=== PATIENT | female | born 1975 | race African-American/Black ===

== ENCOUNTER 2019-01-01 20:50 | Emergency (ER) | payer OTHER ==
[~2019-01-01] VITALS: Ht 165.1 cm; Wt 111.6 kg
--- OUTSIDE RECORDS SUMMARY | 2019-01-01 20:53 | XMS REPORT | Summary of Care ---
Author Author [facility] Organization [facility] Address Unknown Phone Unavailable Encounter DERRICK Guzmán(JERRY) [id number] Date(s): 03/28/17 - 03/29/17 [facility] [address] [place] [address]- [phone] Discharge Diagnosis: Anal fissure Discharge Diagnosis: Groin strain Discharge Disposition: Home or Self Care Attending Physician: Vita Simon DO Vital Signs Most recent to 1 2 oldest [Reference Range]: Height 165.1 cm (03/29/17 12:05 AM) Temperature Oral 97.9 DegF 98.1 DegF [96.4-99.1 DegF] (03/29/17 3:02 AM) (03/29/17 12:05 AM) Blood Pressure 145/80 mmHg 156/96 mmHg [90-140/60-90 mmHg] *HI* *HI* (03/29/17 3:02 AM) (03/29/17 12:05 AM) Respiratory Rate 16 BRMIN 18 BRMIN [14-20 BRMIN] (03/29/17 3:02 AM) (03/29/17 12:05 AM) Peripheral Pulse 82 bpm 86 bpm Rate [60-100 bpm] (03/29/17 3:02 AM) (03/29/17 12:05 AM) Weight 90.909 kg (03/29/17 12:05 AM) Body Mass Index 33.35 m2 (03/29/17 12:05 AM) Problem List Condition Effective Dates Status Health Status Informant Asthma(Confirmed) Resolved BP+ - Resolved Hypertension(Confirm ed) Hysterectomy(Confirm 03/12/14 Active ed) Allergies, Adverse Reactions, Alerts Substance Reaction Severity Status Food Strawberries Active NKDA Active Medications Colace 100 mg oral capsule 100 mg=1 cap, PO, BID, PRN Constipation, # 20 cap, 0 Refill(s) Start Date: 03/29/17 Status: Ordered Flexeril 10 mg oral tablet 10 mg=1 tab, PO, TID, PRN for spasm, X 10 day, # 30 tab, 0 Refill(s) Start Date: 03/29/17 Stop Date: 04/08/17 Status: Ordered tramadol 50 mg oral tablet 50 mg=1 tab, PO, Q6H, PRN Pain, not to exceed 400 mg/day, X 5 day, # 20 tab, 0 R efill(s) Start Date: 03/29/17 Stop Date: 04/03/17 Status: Ordered Results ELECTROLYTES Most recent to 1 oldest [Reference Range]: Sodium Lvl [135-145 142 mEq/L mEq/L] (03/29/17 1:07 AM) Potassium Lvl 3.7 mEq/L [3.5-5.1 mEq/L] (03/29/17 1:07 AM) Chloride Lvl [95-109 106 mEq/L mEq/L] (03/29/17 1:07 AM) CO2 [24-32 mEq/L] 30 mEq/L (03/29/17 1:07 AM) AGAP [10.0-20.0 9.7 mEq/L mEq/L] *LOW* (03/29/17 1:07 AM) CHEM PANEL Most recent to 1 oldest [Reference Range]: Creatinine Lvl 0.79 mg/dL [0.50-1.40 mg/dL] (03/29/17 1:07 AM) eGFR 106 mL/min/1.73m2 1 *NA* (03/29/17 1:07 AM) BUN [7-22 mg/dL] 13 mg/dL (03/29/17 1:07 AM) B/C Ratio [6-25] 16 (03/29/17 1:07 AM) Glucose Lvl [70-99 111 mg/dL mg/dL] *HI* (03/29/17 1:07 AM) Total Protein 7.2 g/dL [6.4-8.4 g/dL] (03/29/17 1:07 AM) Albumin Lvl [3.5-5.0 3.7 g/dL g/dL] (03/29/17 1:07 AM) Globulin [2.7-4.2 3.5 g/dL g/dL] (03/29/17 1:07 AM) A/G Ratio [0.7-1.6] 1.1 (03/29/17 1:07 AM) Calcium Lvl 8.6 mg/dL [8.5-10.5 mg/dL] (03/29/17 1:07 AM) ALT [0-65 unit/L] 19 unit/L (03/29/17 1:07 AM) AST [0-37 unit/L] 14 unit/L (03/29/17 1:07 AM) Alk Phos [39-136 87 unit/L unit/L] (03/29/17 1:07 AM) Bili Total [0.2-1.3 0.5 mg/dL mg/dL] (03/29/17 1:07 AM) 1Result Comment: The eGFR is calculated using the CKD-EPI formula. In most young, healthy individuals the eGFR will be >90 mL/min/1.73m2. The eGFR declines with age. An eGFR of 60-89 may be normal in some populations, particularly the elderly, for whom the CKD-EPI formula has not been extensively validated. Use of the eGFR is not recommended in the following populations: Individuals with unstable creatinine concentrations, including patients and those with serious co-morbid conditions. Patients with extremes in muscle mass or diet. The data above are obtained from the National Kidney Disease Education Program ( NKDEP) which additionally recommends that when the eGFR is used in patients with extremes of body mass index for purposes of drug dosing, the eGFR should be mul tiplied by the estimated BMI. ENDOCRINOLOGY Most recent to 1 oldest [Reference Range]: S Preg [Negative] Negative *NA* (03/29/17 1:07 AM) URINE AND STOOL Most recent to 1 oldest [Reference Range]: UA Turbidity [Clear] Clear (03/29/17 1:07 AM) UA Color [Yellow] Yellow *NA* (03/29/17 1:07 AM) UA pH [5.0-8.0] 6.0 (03/29/17 1:07 AM) UA Spec Grav 1.021 [<=1.030] (03/29/17 1:07 AM) UA Glucose [Negative Negative mg/dL mg/dL] *NA* (03/29/17 1:07 AM) UA Blood [Negative] Negative (03/29/17 1:07 AM) UA Ketones [Negative Negative mg/dL mg/dL] *NA* (03/29/17 1:07 AM) UA Protein [Negative Negative mg/dL mg/dL] (03/29/17 1:07 AM) UA Urobilinogen <=1.0 mg/dL [0.1-1.0 mg/dL] *NA* (03/29/17 1:07 AM) UA Bili [Negative] Negative *NA* (03/29/17 1:07 AM) UA Leuk Est Negative [Negative] (03/29/17 1:07 AM) UA Nitrite Negative [Negative] (03/29/17 1:07 AM) UA WBC [0-5 /HPF] 1 /HPF (03/29/17 1:07 AM) UA RBC [0-2 /HPF] 3 /HPF *HI* (03/29/17 1:07 AM) UA Sq Epi [Few /LPF] Few /LPF *NA* (03/29/17 1:07 AM) UA Mucus [None Seen Few /LPF /LPF] *NA* (03/29/17 1:07 AM) Occult Bld Stl Negative [Negative] (03/29/17 2:23 AM) HEMATOLOGY Most recent to 1 oldest [Reference Range]: WBC [3.7-10.4 K/CMM] 12.0 K/CMM *HI* (03/29/17 1:07 AM) RBC [4.20-5.40 4.30 M/CMM M/CMM] (03/29/17 1:07 AM) Hgb [12.0-16.0 g/dL] 12.8 g/dL (03/29/17 1:07 AM) Hct [36.0-48.0 %] 37.4 % (03/29/17 1:07 AM) MCV [80.0-98.0 fL] 87.0 fL (03/29/17 1:07 AM) MCH [27.0-31.0 pg] 29.7 pg (03/29/17 1:07 AM) MCHC [32.0-36.0 34.1 g/dL g/dL] (03/29/17 1:07 AM) RDW [11.5-14.5 %] 12.4 % (03/29/17 1:07 AM) Platelet [133-450 285 K/CMM K/CMM] (03/29/17 1:07 AM) MPV [7.4-10.4 fL] 9.6 fL (03/29/17 1:07 AM) Segs [45.0-75.0 %] 65.8 % (03/29/17 1:07 AM) Lymphocytes 26.2 % [20.0-40.0 %] (03/29/17 1:07 AM) Monocytes [2.0-12.0 6.1 % %] (03/29/17 1:07 AM) Eosinophils [0.0-4.0 1.5 % %] (03/29/17 1:07 AM) Basophils [0.0-1.0 0.4 % %] (03/29/17 1:07 AM) Segs-Bands # 7.9 K/CMM [1.5-8.1 K/CMM] (03/29/17 1:07 AM) Lymphocytes # 3.1 K/CMM [1.0-5.5 K/CMM] (03/29/17 1:07 AM) Monocytes # [0.0-0.8 0.7 K/CMM K/CMM] (03/29/17 1:07 AM) Eosinophils # 0.2 K/CMM [0.0-0.5 K/CMM] (03/29/17 1:07 AM) Immunizations Given and Recorded Vaccine Date Status Refusal Reason pneumococcal 23-valent vaccine 04/20/14 Given Procedures Procedure Date Related Diagnosis Body Site Gallbladder stone removal Hysterectomy Social History Social History Type Response Alcohol Never, Previous treatment: None. Smoking Status Never smoker; Previous treatment: None; Ready to change: No; Concerns about tobacco use in household: No; Exposure to Tobacco Smoke None; Cigarette Smoking Last 365 Days No; Reg Smoking Cessation Counseling Yes Assessment and Plan No data available for this section
--- OUTSIDE RECORDS SUMMARY | 2019-01-01 20:53 | XMS REPORT | Clinical Summary ---
Author Author [facility] Organization [facility] Address Unknown Phone Unavailable Care Team Providers Care Medical Imaging Specialist Name Role Phone Sharpless PCP Allergies Comments Active Allergy Reactions Severity Noted Date Berger 05/17/2017 Medications End Date Status Medication Sig Dispensed Refills Start Date Active amLODIPine (NORVASC) 5 MG Take 5 mg by 0 tablet mouth daily. 05/17/2018 naproxen (NAPROSYN) 500 Take 1 tablet 30 tablet 0 201 MG tablet (500 mg 7 total) by mouth 2 (two) times daily with breakfast and dinner. Active Problems Not on file Encounters Care Team Description Date Type Specialty Anders Heart MD Acute bilateral low back pain without sciatica (Primary Dx); Strain of lumbar region, initial encounter; Essential hypertension; Obesity without serious comorbidity, unspecified classification, unspecified obesity type 11/08/2018 Emergency Emergency Medicine 11/08/2018 Travel after 12/31/2017 Social History Date Tobacco Use Types Packs/Day Years Used Never Smoker Smokeless Tobacco: Never Used Alcohol Use Drinks/Week oz/Week Comments No Sex Assigned at Date Recorded Not on file Industry Job Start Date Occupation Not on file Not on file Not on file Travel End Travel History Travel Start No recent travel history available. Last Filed Vital Signs Time Taken Vital Sign Reading 11/08/2018 6:45 PM BUSINESS MANAGEMENT PROFESSOR Blood Pressure 141/82 11/08/2018 6:45 PM BUSINESS MANAGEMENT PROFESSOR Pulse 82 11/08/2018 6:45 PM BUSINESS MANAGEMENT PROFESSOR Temperature 36.7 C (98 F) 11/08/2018 6:45 PM BUSINESS MANAGEMENT PROFESSOR Respiratory Rate 18 11/08/2018 6:45 PM BUSINESS MANAGEMENT PROFESSOR Oxygen Saturation 99% - Inhaled Oxygen - Concentration 11/08/2018 2:52 PM BUSINESS MANAGEMENT PROFESSOR Weight 108.9 kg (240 lb) 11/08/2018 2:52 PM BUSINESS MANAGEMENT PROFESSOR Height 165.1 cm (5' 5") 11/08/2018 2:52 PM BUSINESS MANAGEMENT PROFESSOR Body Mass Index 39.94 Plan of Treatment Not on file Procedures Comments Procedure Name Priority Date/Time Associated Diagnosis XR SPINE LUMBAR COMPLETE STAT 11/08/2018 MIN 4 VIEWS 5:39 PM BUSINESS MANAGEMENT PROFESSOR SCREEN, URINE STAT 11/08/2018 3:02 PM BUSINESS MANAGEMENT PROFESSOR URINALYSIS W/ REFLEX STAT 11/08/2018 URINE CULTURE 3:02 PM BUSINESS MANAGEMENT PROFESSOR after 12/31/2017 Results * XR spine lumbar complete 4 views min (11/08/2018 5:39 PM BUSINESS MANAGEMENT PROFESSOR) Narrative Performed At FINAL REPORT RIS Lumbar spine, five images HISTORY: Back pain COMPARISON: None IMPRESSION: 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 No evidence for fracture. Moderate facet degenerative changes in the lower lumbar spine. Degenerative anterolisthesis of L4 on L5. 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 No evidence for fracture. Moderate facet degenerative changes in the lower lumbar spine. Degenerative anterolisthesis of L4 on L5. Signed: Duran Cai MD Report Verified Date/Time: 11/08/2018 17:52:50 Reading Location: [address] Radiology Reading Room Performing Organization Address City/State/Zipcode Phone Number RIS * Urinalysis w/Microscopic + Reflex to Culture (11/08/2018 3:02 PM BUSINESS MANAGEMENT PROFESSOR) [facility], UA Yellow [facility] Clarity, UA Clear [facility] Specific [place], UA 1.010 1.001 - 1.035 [facility] pH, UA 7.0 5.0 - 8.0 [facility] Protein, UA Negative Negative [facility] Glucose, UA Negative Negative [facility] Ketones, UA Negative Negative [facility] Bilirubin, UA Negative Negative [facility] Blood, UA Negative Negative [facility] Nitrite, UA Negative Negative [facility] Leukocytes, UA Negative Negative [facility] Urobilinogen, UA 0.2 0.2 - 1.0 mg/dL [facility] RBC, UA <1 /HPF [facility] WBC, UA 1 /HPF [facility] Squam Epithel, UA 3 /HPF [facility] Specimen Source [facility] Specimen Urine - Urine, Clean Catch Performing Organization Address City[facility] Phone Number [facility] [address] [place] [address] [facility] * screen, urine (11/08/2018 3:02 PM BUSINESS MANAGEMENT PROFESSOR) Preg Test, Ur Negative [facility] Specimen Urine - Urine, Clean Catch Performing Organization Address City/[facility] Phone Number [facility] [address] [place] [address] [facility] after 12/31/2017 Insurance Payer Benefit Subscriber ID Type Phone Address Plan / Group [employer] - MGD CARE CIGNA xxxxxxxxxxx HMO/POS HMO/POS/OP EN ACCESS ([place]) [place] [address]
--- OUTSIDE RECORDS SUMMARY | 2019-01-01 20:53 | XMS REPORT | Summary of Care ---
Author Author [facility] Organization [facility] Address Unknown Phone Unavailable Encounter HQ Ramirez(JERRY) [id number] Date(s): 11/08/17 - 11/09/17 [facility] [address] [place] [address]- Discharge Diagnosis: Acute bronchospasm Discharge Disposition: Home or Self Care Attending Physician: Magalis Garza DO Vital Signs 1 2 3 Most recent to oldest [Reference Range]: 165.1 cm (11/08/17 10:12 PM) Height 97.8 DegF (11/09/17 2:48 AM) 97.9 DegF (11/09/17 1:57 AM) 99.0 DegF (11/08/17 10:12 PM) Temperature Oral [96.4-99.1 DegF] 124/74 mmHg (11/09/17 2:48 AM) 117/68 mmHg (11/09/17 1:57 AM) 156/95 mmHg *HI* (11/08/17 10:12 PM) Blood Pressure [90-140/60-90 mmHg] 14 BRMIN (11/09/17 2:48 AM) 14 BRMIN (11/09/17 1:57 AM) 20 BRMIN (11/08/17 10:56 PM) Respiratory Rate [14-20 BRMIN] 84 bpm (11/09/17 2:48 AM) 92 bpm (11/08/17 10:12 PM) Peripheral Pulse Rate [60-100 bpm] 100 kg (11/08/17 10:12 PM) Weight 36.69 m2 (11/08/17 10:12 PM) Body Mass Index Problem List Condition Effective Dates Status Health Status Informant Asthma(Confirmed) Resolved BP+ - Resolved Hypertension(Confirm ed) Hysterectomy(Confirm 03/12/14 Active ed) Allergies, Adverse Reactions, Alerts Substance Reaction Severity Status Food Strawberries Active NKDA Active Medications DuoNeb inhalation solution 3 ml, Route: NEB, Drug Form: SOLN, Dosing Weight 90.909, kg, PRN, PRN Respirator y Protocol, Start date: 11/08/17 22:11:00 MEDICAL LOGISTICS SPECIALIST, Duration: 30 day, Stop date: 11/26 02/10 22:10:00 MEDICAL LOGISTICS SPECIALIST Notes: (Same as: Duoneb) Start Date: 11/08/17 Stop Date: 11/09/17 Status: Discontinued predniSONE 50 mg oral tablet 50 mg=1 tab, PO, Daily, X 5 day, # 5 tab, 0 Refill(s) Start Date: 11/09/17 Stop Date: 11/14/17 Status: Ordered Saline Flush 0.9% 10 mL, Route: IVP, Drug Form: INJ, Dosing Weight 90.909, kg, PRN, PRN Line Flush , Start date: 11/08/17 22:11:00 MEDICAL LOGISTICS SPECIALIST, Duration: 30 day, Stop date: 12/08/17 22:10 :00 MEDICAL LOGISTICS SPECIALIST Notes: (Same as: BD Posiflush) Start Date: 11/08/17 Stop Date: 11/09/17 Status: Discontinued Tessalon 200 mg oral capsule 200 mg=1 cap, PO, TID, X 10 day, # 30 cap, 0 Refill(s) Start Date: 11/09/17 Stop Date: 11/19/17 Status: Ordered Results ELECTROLYTES Most recent to 1 oldest [Reference Range]: Sodium Lvl [135-145 140 mEq/L mEq/L] (11/08/17 10:37 PM) Potassium Lvl 3.8 mEq/L [3.5-5.1 mEq/L] (11/08/17 10:37 PM) Chloride Lvl [95-109 103 mEq/L mEq/L] (11/08/17 10:37 PM) CO2 [24-32 mEq/L] 29 mEq/L (11/08/17 10:37 PM) AGAP [10.0-20.0 11.8 mEq/L mEq/L] (11/08/17 10:37 PM) CHEM PANEL Most recent to 1 oldest [Reference Range]: Creatinine Lvl 0.87 mg/dL [0.50-1.40 mg/dL] (11/08/17 10:37 PM) eGFR 94 mL/min/1.73m2 1 *NA* (11/08/17 10:37 PM) BUN [7-22 mg/dL] 13 mg/dL (11/08/17 10:37 PM) B/C Ratio [6-25] 15 (11/08/17 10:37 PM) Glucose Lvl [70-99 90 mg/dL mg/dL] (11/08/17 10:37 PM) Total Protein 7.3 g/dL [6.4-8.4 g/dL] (11/08/17 10:37 PM) Albumin Lvl [3.5-5.0 3.6 g/dL g/dL] (11/08/17 10:37 PM) Globulin [2.7-4.2 3.7 g/dL g/dL] (11/08/17 10:37 PM) A/G Ratio [0.7-1.6] 1.0 (11/08/17 10:37 PM) Calcium Lvl 8.6 mg/dL [8.5-10.5 mg/dL] (11/08/17 10:37 PM) ALT [0-65 unit/L] 32 unit/L (11/08/17 10:37 PM) AST [0-37 unit/L] 21 unit/L (11/08/17 10:37 PM) Alk Phos [39-136 90 unit/L unit/L] (11/08/17 10:37 PM) Bili Total [0.2-1.3 0.4 mg/dL mg/dL] (11/08/17 10:37 PM) 1Result Comment: The eGFR is calculated using [...] be mul tiplied by the estimated BMI. CARDIAC ENZYMES Most recent to 1 oldest [Reference Range]: Total CK [12-191 249 unit/L unit/L] *HI* (11/08/17 10:37 PM) CK MB [0.5-3.6 2.8 ng/mL ng/mL] (11/08/17 10:37 PM) CK MB Index 1.1 [0.0-2.5] (11/08/17 10:37 PM) Troponin-I <0.02 ng/mL [0.00-0.40 ng/mL] (11/08/17 10:37 PM) URINE CHEM Most recent to 1 oldest [Reference Range]: U Preg [Negative] Negative (11/08/17 10:52 PM) URINE AND STOOL Most recent to 1 oldest [Reference Range]: UA Turbidity [Clear] Clear (11/08/17 10:52 PM) UA Color [Yellow] Yellow *NA* (11/08/17 10:52 PM) UA pH [5.0-8.0] 6.0 (11/08/17 10:52 PM) UA Spec Grav 1.024 [<=1.030] (11/08/17 10:52 PM) UA Glucose [Negative Negative mg/dL mg/dL] *NA* (11/08/17 10:52 PM) UA Blood [Negative] Negative (11/08/17 10:52 PM) UA Ketones [Negative Negative mg/dL mg/dL] *NA* (11/08/17 10:52 PM) UA Protein [Negative Negative mg/dL mg/dL] (11/08/17 10:52 PM) UA Urobilinogen <=1.0 mg/dL [0.1-1.0 mg/dL] *NA* (11/08/17 10:52 PM) UA Bili [Negative] Negative *NA* (11/08/17 10:52 PM) UA Leuk Est Negative [Negative] (11/08/17 10:52 PM) UA Nitrite Negative [Negative] (11/08/17 10:52 PM) UA WBC [0-5 /HPF] 1 /HPF (11/08/17 10:52 PM) UA RBC [0-2 /HPF] 2 /HPF (11/08/17 10:52 PM) UA Sq Epi [Few /LPF] Few /LPF *NA* (11/08/17 10:52 PM) UA Mucus [None Seen Few /LPF /LPF] *NA* (11/08/17 10:52 PM) HEMATOLOGY Most recent to 1 oldest [Reference Range]: WBC [3.7-10.4 K/CMM] 9.1 K/CMM (11/08/17 10:37 PM) RBC [4.20-5.40 4.22 M/CMM M/CMM] (11/08/17 10:37 PM) Hgb [12.0-16.0 g/dL] 12.4 g/dL (11/08/17 10:37 PM) Hct [36.0-48.0 %] 37.1 % (11/08/17 10:37 PM) MCV [80.0-98.0 fL] 87.9 fL (11/08/17 10:37 PM) MCH [27.0-31.0 pg] 29.3 pg (11/08/17 10:37 PM) MCHC [32.0-36.0 33.4 g/dL g/dL] (11/08/17 10:37 PM) RDW [11.5-14.5 %] 13.1 % (11/08/17 10:37 PM) Platelet [133-450 270 K/CMM K/CMM] (11/08/17 10:37 PM) MPV [7.4-10.4 fL] 9.8 fL (11/08/17 10:37 PM) Segs [45.0-75.0 %] 61.4 % (11/08/17 10:37 PM) Lymphocytes 27.4 % [20.0-40.0 %] (11/08/17 10:37 PM) Monocytes [2.0-12.0 8.2 % %] (11/08/17 10:37 PM) Eosinophils [0.0-4.0 2.4 % %] (11/08/17 10:37 PM) Basophils [0.0-1.0 0.6 % %] (11/08/17 10:37 PM) Segs-Bands # 5.6 K/CMM [1.5-8.1 K/CMM] (11/08/17 10:37 PM) Lymphocytes # 2.5 K/CMM [1.0-5.5 K/CMM] (11/08/17 10:37 PM) Monocytes # [0.0-0.8 0.7 K/CMM K/CMM] (11/08/17 10:37 PM) Eosinophils # 0.2 K/CMM [0.0-0.5 K/CMM] (11/08/17 10:37 PM) Basophils # [0.0-0.2 0.1 K/CMM K/CMM] (11/08/17 10:37 PM) Immunizations Given and Recorded Vaccine Date Status [...]
--- OUTSIDE RECORDS SUMMARY | 2019-01-01 20:53 | XMS REPORT | Summary of Care ---
Author Author [facility] Organization [facility] Address Unknown Phone Unavailable Encounter DERRICK Guzmán(JERRY) [id number] Date(s): 06/21/16 - 06/21/16 [facility] [address] [place] [address]- Discharge Diagnosis: Irritation of right eye Discharge Disposition: Home or Self Care Attending Physician: Malcolm Cotton MD PHD Vital Signs Most recent to 1 oldest [Reference Range]: Height 165.1 cm (06/21/16 12:11 PM) Temperature Oral 98.3 DegF [96.4-99.1 DegF] (06/21/16 12:11 PM) Blood Pressure 148/87 mmHg [90-140/60-90 mmHg] *HI* (06/21/16 12:11 PM) Respiratory Rate 20 BRMIN [14-20 BRMIN] (06/21/16 12:11 PM) Peripheral Pulse 81 bpm Rate [60-100 bpm] (06/21/16 12:11 PM) Weight 95.455 kg (06/21/16 12:11 PM) Body Mass Index 35.02 m2 (06/21/16 12:11 PM) Problem List Condition Effective Dates Status Health Status Informant Asthma(Confirmed) Resolved BP+ - Resolved Hypertension(Confirm ed) Hysterectomy(Confirm 03/12/14 Active ed) Allergies, Adverse Reactions, Alerts Substance Reaction Severity Status Food Strawberries Active NKDA Active Medications No data available for this section Results No data available for this section Immunizations Given and Recorded Vaccine Date Status Refusal Reason pneumococcal 23-valent vaccine 04/20/14 Given Procedures Procedure Date Related Diagnosis Body Site Gallbladder stone removal Hysterectomy Social History Social History Type Response Alcohol Never, Previous treatment: None. Smoking Status Never smoker; Ready to change: No; Concerns about tobacco use in household: No; Exposure to Tobacco Smoke None; Cigarette Smoking Last 365 Days No; Reg Smoking Cessation Counseling Yes Assessment and Plan No data available for this section
--- OUTSIDE RECORDS SUMMARY | 2019-01-01 20:53 | XMS REPORT ---
Author Author [facility] Address Unknown Phone Unavailable Care Team Providers Care Welfare Manager Name Role Phone Unavailable Unavailable Problems This patient has no known problems. Allergies, Adverse Reactions, Alerts This patient has no known allergies or adverse reactions. Medications This patient has no known medications. 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 No evidence for fracture. Moderate facet degenerative changes in the lower lumbar spine. Degenerative anterolisthesis of L4 on L5. Signed: Duran Cai MDReport Verified Date/Time: 11/08/2018 17:52:50 Reading Location: [address] Radiology Reading Room ALYSIS W/ REFLEX URINE CULTURE 2018-11-08 15:33:00 COLOR (BEAKER) (test mkan=902) Yellow CLARITY (BEAKER) (test qdge=804) Clear SPECIFIC GRAVITY UA (BEAKER) (test reec=523) 1.010 1.001-1.035 PH UA (BEAKER) (test fkpx=970) 7.0 5.0-8.0 PROTEIN UA (BEAKER) (test ewjy=038) Negative Negative GLUCOSE UA (BEAKER) (test pktu=199) Negative Negative KETONES UA (BEAKER) (test kngg=089) Negative Negative BILIRUBIN UA (BEAKER) (test dqmr=685) Negative Negative BLOOD UA (BEAKER) (test itdq=554) Negative Negative NITRITE UA (BEAKER) (test jeqo=780) Negative Negative LEUKOCYTE ESTERASE UA (BEAKER) (test lthi=246) Negative Negative UROBILINOGEN UA (BEAKER) (test eypj=864) 0.2 mg/dL 0.2-1.0 RBC UA (BEAKER) (test lpue=008) < /HPF WBC UA (BEAKER) (test nifd=205) 1 /HPF SQUAMOUS EPITHELIAL (BEAKER) (test pofi=043) 3 /HPF SOURCE(BEAKER) (test hnmk=9498) SCREEN, [id number] 15:30:00* Test Item Value Reference Range Comments TEST URINE (BEAKER) (test rpif=692) Negative RAPID STREP A [id number] 15:24:00* Test Item Value Reference Range Comments STREP A ANTIGEN (BEAKER) (test klsd=209) Negative Negative
--- OUTSIDE RECORDS SUMMARY | 2019-01-01 20:53 | XMS REPORT | Continuity of Care Document ---
Author Author [facility] Interface Address Unknown Phone Unavailable Problems Problem Status Onset Date Classification Date Reported Comments Source FACIAL PAIN Active 08/22/2018 [facility] NECK/ SHOULDER PAIN Active 04/02/2018 [facility] Discharge Diagnosis: Acute bronchospasm 11/09/2017 11/12/2017 [facility] CHEST PAIN Active 11/08/2017 [facility] Discharge Diagnosis: Anal fissure 03/29/2017 04/01/2017 [facility] Discharge Diagnosis: Groin strain 03/29/2017 04/01/2017 [facility] BLOOD IN STOOL Active 03/28/2017 [facility] Discharge Diagnosis: Acute asthma exacerbation 01/27/2017 01/30/2017 [facility] Discharge Diagnosis: Irritation of right eye 06/21/2016 06/24/2016 [facility] EYE IRRITATION Active 06/21/2016 [facility] Hysterectomy Active 03/12/2014 Problem 04/06/2018 [facility] Asthma Resolved Problem 04/06/2018 [facility] BP+ - Hypertension Resolved Problem 04/06/2018 [facility] Medications Medication Details Route Status Patient Instructions Ordering Provider Order Date Source benzonatate 200 MG Oral Capsule [Tessalon] 200 mg=1 cap, PO, TID, X 10 day, # 30 cap, 0 Refill(s) Active 11/09/2017 [facility] Prednisone 50 MG Oral Tablet 50 mg=1 tab, PO, Daily, X 5 day, # 5 tab, 0 Refill(s) Active 11/09/2017 [facility] Albuterol 0.833 MG/ML / Ipratropium [place] 0.167 MG/ML Inhalant Solution [DuoNeb] 3 ml, Route: NEB, Drug Form: SOLN, Dosing Weight 90.909, kg, PRN, PRN Respiratory Protocol, Start date: 11/08/17 22:11:00 EXECUTIVE DIRECTOR OF NURSING, Duration: 30 day, Stop date: 12/08/17 22:10:00 CSTNotes: (Same as: Duoneb) No Longer Active 11/09/2017 [facility] Saline Flush 0.9% 10 mL, Route: IVP, Drug Form: INJ, Dosing Weight 90.909, kg, PRN, PRN Line Flush, Start date: 11/08/17 22:11:00 EXECUTIVE DIRECTOR OF NURSING, Duration: 30 day, Stop date: 12/08/17 22:10:00 CSTNotes: (Same as: BD Posiflush) No Longer Active 11/09/2017 [facility] tramadol hydrochloride 50 MG Oral Tablet 50 mg=1 tab, PO, Q6H, PRN Pain, not to exceed 400 mg/day, X 5 day, # 20 tab, 0 Refill(s) Active 03/29/2017 [facility] Cyclobenzaprine hydrochloride 10 MG Oral Tablet [Flexeril] 10 mg=1 tab, PO, TID, PRN for spasm, X 10 day, # 30 tab, 0 Refill(s) Active 03/29/2017 [facility] Docusate Sodium 100 MG Oral Capsule [Colace] 100 mg=1 cap, PO, BID, PRN Constipation, # 20 cap, 0 Refill(s) Active 03/29/2017 [facility] Azithromycin 5 Day Dose Pack 250 mg oral tablet See Instructions, Take 2 tablets by mouth the first day then 1 tablet by mouth days 2-5., X 5 day, # 6 tab, 0 Refill(s) Active 01/27/2017 [facility] 200 ACTUAT Albuterol 0.09 MG/ACTUAT Metered Dose Inhaler 2 puff, INHALATION, QID, PRN Wheezing, # 17 gm, 0 Refill(s) Active 01/27/2017 [facility] predniSONE 50 mg oral tablet 50 mg=1 tab, PO, Daily, X 5 day, # 5 tab, 0 Refill(s) Active 01/27/2017 [facility] Albuterol 0.833 MG/ML / Ipratropium [place] 0.167 MG/ML Inhalant Solution 3 mL, Route: NEB, Drug Form: SOLN, Dosing Weight 95.455, kg, ONCE, STAT, Start date: 01/27/17 1:34:00 EXECUTIVE DIRECTOR OF NURSING, Stop date: 01/27/17 1:34:00 CSTNotes: (Same as: Duoneb) Inactive 01/27/2017 [facility] Albuterol 0.83 MG/ML Inhalant Solution 2.49 mg, 3 mL, Route: NEB, Drug form: SOLN, ONCE, Dosing Weight 95.455, kg, Priority: STAT, Start date: 01/27/17 1:34:00 EXECUTIVE DIRECTOR OF NURSING, Stop date: 01/27/17 1:34:00 CSTNotes: SEE RT DOCUMENTATION (Same as: Proventil) Inactive 01/27/2017 [facility] Prednisone 60 mg, Route: PO, Drug form: TAB, ONCE, Dosing Weight 95.455, kg, Priority: STAT, Start date: 01/27/17 1:34:00 EXECUTIVE DIRECTOR OF NURSING, Stop date: 01/27/17 1:34:00 EXECUTIVE DIRECTOR OF NURSING Inactive 01/27/2017 [facility] Saline Flush 0.9% 10 mL, Route: IVP, Drug Form: INJ, Dosing Weight 95.455, kg, PRN, PRN Line Flush, Start date: 01/27/17 1:34:00 EXECUTIVE DIRECTOR OF NURSING, Duration: 30 day, Stop date: 02/26/17 2:33:00 CDTNotes: (Same as: BD Posiflush) Inactive 01/27/2017 [facility] Allergies, Adverse Reactions, Alerts Substance Category Reaction Severity Reaction type Status Date Reported Comments Source Food Strawberries Assertion Propensity to adverse reactions to food Active [facility] Immunizations Immunization Date Given Site Status Last Updated Comments Source pneumococcal 23-valent vaccine 04/20/2014 Left deltoid completed Fernandez [facility] Results Order Name Results Value Reference Range Date Interpretation Comments Source Nasal bones DX Nasal bones DX Nasal bones, 3 views HISTORY: Nasal pain. COMPARISON: None. FINDINGS: Frontal and bilateral radiographs demonstrate no definite evidence of an acute fracture. The paranasal sinuses appear to be well pneumatized. IMPRESSION: No acute finding. SL: YURIY 08/22/2018 - - Read by: Andrew Killian MD Dictated Date/time: 08/22/18 20:52 Electronically Signed by: Andrew Killian MD 08/22/18 20:57 FINAL REPORT [facility] URINE AND STOOL UA Sq Epi Few /LPF Few /LPF 11/09/2017 [facility] URINE AND STOOL UA RBC 2 /HPF 0 - 2 11/09/2017 [facility] URINE AND STOOL UA WBC 1 /HPF 0 - 5 11/09/2017 [facility] URINE AND STOOL UA Urobilinogen <=1.0 mg/dL 0.1 - 1.0 11/09/2017 [facility] URINE AND STOOL UA Mucus Few /LPF None Seen /LPF 11/09/2017 [facility] URINE AND STOOL UA Color Yellow *NA* (11/08/17 10:52 PM) Yellow 11/09/2017 [facility] URINE AND STOOL UA Protein Negative mg/dL Negative mg/dL 11/09/2017 [facility] URINE AND STOOL UA pH 6.0 5.0 - 8.0 11/09/2017 [facility] URINE AND STOOL UA Spec Grav 1.024 <=1.030 11/09/2017 [facility] URINE AND STOOL UA Turbidity Clear (11/08/17 10:52 PM) Clear 11/09/2017 [facility] URINE AND STOOL UA Glucose Negative mg/dL Negative mg/dL 11/09/2017 [facility] URINE AND STOOL UA Ketones Negative mg/dL Negative mg/dL 11/09/2017 [facility] URINE AND STOOL UA Leuk Est Negative (11/08/17 10:52 PM) Negative 11/09/2017 [facility] URINE AND STOOL UA Nitrite Negative (11/08/17 10:52 PM) Negative 11/09/2017 [facility] URINE AND STOOL UA Blood Negative (11/08/17 10:52 PM) Negative 11/09/2017 [facility] URINE AND STOOL UA Bili Negative *NA* (11/08/17 10:52 PM) Negative 11/09/2017 [facility] URINE CHEM U Preg Negative (11/08/17 10:52 PM) Negative 11/09/2017 [facility] CARDIAC ENZYMES Troponin-I null 0.00 - 0.40 11/09/2017 [facility] CARDIAC ENZYMES Total CK 249 unit/L 12 - 191 11/09/2017 [facility] CARDIAC ENZYMES CK MB 2.8 ng/mL 0.5 - 3.6 11/09/2017 [facility] CARDIAC ENZYMES CK MB Index 1.1 0.0 - 2.5 11/09/2017 [facility] CHEM PANEL eGFR 94 mL/min/1.73m2 11/09/2017 Result Comment: The eGFR is calculated using the [...] from the National Kidney Disease Education Program (NKDEP) which additionally recommends that when the eGFR is used in patients with extremes of body mass index for purposes of drug dosing, the eGFR should be multiplied by the estimated BMI. [facility] CHEM PANEL Creatinine Lvl 0.87 mg/dL 0.50 - 1.40 11/09/2017 [facility] CHEM PANEL Sodium Lvl 140 meq/L 135 - 145 11/09/2017 [facility] CHEM PANEL B/C Ratio 15 6 - 25 11/09/2017 [facility] CHEM PANEL A/G Ratio 1.0 0.7 - 1.6 11/09/2017 [facility] CHEM PANEL Globulin 3.7 g/dL 2.7 - 4.2 11/09/2017 [facility] CHEM PANEL Alk Phos 90 unit/L 39 - 136 11/09/2017 [facility] CHEM PANEL Bili Total 0.4 mg/dL 0.2 - 1.3 11/09/2017 [facility] CHEM PANEL ALT 32 unit/L 0 - 65 11/09/2017 [facility] CHEM PANEL AST 21 unit/L 0 - 37 11/09/2017 [facility] CHEM PANEL Calcium Lvl 8.6 mg/dL 8.5 - 10.5 11/09/2017 [facility] CHEM PANEL Total Protein 7.3 g/dL 6.4 - 8.4 11/09/2017 [facility] CHEM PANEL Albumin Lvl 3.6 g/dL 3.5 - 5.0 11/09/2017 [facility] CHEM PANEL Chloride Lvl 103 meq/L 95 - 109 11/09/2017 [facility] CHEM PANEL Potassium Lvl 3.8 meq/L 3.5 - 5.1 11/09/2017 [facility] CHEM PANEL CO2 29 meq/L 24 - 32 11/09/2017 [facility] CHEM PANEL AGAP 11.8 meq/L 10.0 - 20.0 11/09/2017 [facility] CHEM PANEL Glucose Lvl 90 mg/dL 70 - 99 11/09/2017 [facility] CHEM PANEL BUN 13 mg/dL 7 - 22 11/09/2017 [facility] HEMATOLOGY WBC 9.1 K/CMM 3.7 - 10.4 11/09/2017 [facility] HEMATOLOGY RBC 4.22 M/CMM 4.20 - 5.40 11/09/2017 [facility] HEMATOLOGY MPV 9.8 fL 7.4 - 10.4 11/09/2017 [facility] MCHC 33.4 g/dL 32.0 - 36.0 11/09/2017 [facility] RDW 13.1 % 11.5 - 14.5 11/09/2017 [facility] Platelet 270 K/CMM 133 - 450 11/09/2017 [facility] MCV 87.9 fL 80.0 - 98.0 11/09/2017 [facility] Hgb 12.4 g/dL 12.0 - 16.0 11/09/2017 [facility] Hct 37.1 % 36.0 - 48.0 11/09/2017 [facility] MCH 29.3 pg 27.0 - 31.0 11/09/2017 [facility] Segs 61.4 % 45.0 - 75.0 11/09/2017 [facility] Basophils # 0.1 K/CMM 0.0 - 0.2 11/09/2017 [facility] Eosinophils # 0.2 K/CMM 0.0 - 0.5 11/09/2017 [facility] Monocytes # 0.7 K/CMM 0.0 - 0.8 11/09/2017 [facility] Lymphocytes # 2.5 K/CMM 1.0 - 5.5 11/09/2017 [facility] Segs-Bands # 5.6 K/CMM 1.5 - 8.1 11/09/2017 [facility] Basophils 0.6 % 0.0 - 1.0 11/09/2017 [facility] Monocytes 8.2 % 2.0 - 12.0 11/09/2017 [facility] Lymphocytes 27.4 % 20.0 - 40.0 11/09/2017 [facility] Eosinophils 2.4 % 0.0 - 4.0 11/09/2017 [facility] Chest 1view DX Chest 1view DX EXAM: XR CHEST 1 VIEW DATE: 11/08/2017 10:11 PM EXECUTIVE DIRECTOR OF NURSING INDICATION: Chest pain. COMPARISON: 01/27/2017. TECHNIQUE: A single AP view of the chest was obtained. FINDINGS: No focal consolidation or pneumothorax is identified. The cardiomediastinal silhouette is within normal limits. The costophrenic recesses are sharp and without effusion. No acute osseous abnormality is noted. IMPRESSION: No acute cardiopulmonary abnormality. SL: [id number] 11/08/2017 - - Read by: Prabhakar Fuentes MD Dictated Date/time: 11/08/17 23:18 Electronically Signed by: Prabhakar Fuentes MD 11/08/17 23:19 FINAL REPORT [facility] URINE AND STOOL Occult Bld Stl Negative (03/29/17 2:23 AM) Negative 03/29/2017 [facility] CHEM PANEL Creatinine Lvl 0.79 mg/dL 0.50 - 1.40 03/29/2017 [facility] CHEM PANEL BUN 13 mg/dL 7 - 22 03/29/2017 [facility] CHEM PANEL Potassium Lvl 3.7 meq/L 3.5 - 5.1 03/29/2017 [facility] CHEM PANEL Sodium Lvl 142 meq/L 135 - 145 03/29/2017 [facility] CHEM PANEL Glucose Lvl 111 mg/dL 70 - 99 03/29/2017 [facility] CHEM PANEL eGFR 106 mL/min/1.73m2 03/29/2017 Result Comment: The eGFR is calculated using the [...] from the National Kidney Disease Education Program (NKDEP) which additionally recommends that when the eGFR is used in patients with extremes of body mass index for purposes of drug dosing, the eGFR should be multiplied by the estimated BMI. [facility] CHEM PANEL Alk Phos 87 unit/L 39 - 136 03/29/2017 [facility] CHEM PANEL Bili Total 0.5 mg/dL 0.2 - 1.3 03/29/2017 [facility] CHEM PANEL ALT 19 unit/L 0 - 65 03/29/2017 [facility] CHEM PANEL AST 14 unit/L 0 - 37 03/29/2017 [facility] CHEM PANEL Calcium Lvl 8.6 mg/dL 8.5 - 10.5 03/29/2017 [facility] CHEM PANEL Total Protein 7.2 g/dL 6.4 - 8.4 03/29/2017 [facility] CHEM PANEL Albumin Lvl 3.7 g/dL 3.5 - 5.0 03/29/2017 [facility] CHEM PANEL Chloride Lvl 106 meq/L 95 - 109 03/29/2017 [facility] CHEM PANEL CO2 30 meq/L 24 - 32 03/29/2017 [facility] CHEM PANEL A/G Ratio 1.1 0.7 - 1.6 03/29/2017 [facility] CHEM PANEL B/C Ratio 16 6 - 25 03/29/2017 [facility] CHEM PANEL Globulin 3.5 g/dL 2.7 - 4.2 03/29/2017 [facility] CHEM PANEL AGAP 9.7 meq/L 10.0 - 20.0 03/29/2017 [facility] ENDOCRINOLOGY S Preg Negative *NA* (03/29/17 1:07 AM) Negative 03/29/2017 [facility] HEMATOLOGY Eosinophils # 0.2 K/CMM 0.0 - 0.5 03/29/2017 [facility] HEMATOLOGY Segs-Bands # 7.9 K/CMM 1.5 - 8.1 03/29/2017 [facility] HEMATOLOGY Lymphocytes # 3.1 K/CMM 1.0 - 5.5 03/29/2017 [facility] HEMATOLOGY Eosinophils 1.5 % 0.0 - 4.0 03/29/2017 [facility] HEMATOLOGY Basophils 0.4 % 0.0 - 1.0 03/29/2017 [facility] HEMATOLOGY Monocytes # 0.7 K/CMM 0.0 - 0.8 03/29/2017 [facility] HEMATOLOGY Lymphocytes 26.2 % 20.0 - 40.0 03/29/2017 [facility] HEMATOLOGY Segs 65.8 % 45.0 - 75.0 03/29/2017 [facility] HEMATOLOGY Monocytes 6.1 % 2.0 - 12.0 03/29/2017 [facility] HEMATOLOGY RDW 12.4 % 11.5 - 14.5 03/29/2017 [facility] MCHC 34.1 g/dL 32.0 - 36.0 03/29/2017 [facility] HEMATOLOGY MCV 87.0 fL 80.0 - 98.0 03/29/2017 [facility] HEMATOLOGY Hct 37.4 % 36.0 - 48.0 03/29/2017 [facility] MCH 29.7 pg 27.0 - 31.0 03/29/2017 [facility] HEMATOLOGY Hgb 12.8 g/dL 12.0 - 16.0 03/29/2017 [facility] HEMATOLOGY RBC 4.30 M/CMM 4.20 - 5.40 03/29/2017 [facility] HEMATOLOGY WBC 12.0 K/CMM 3.7 - 10.4 03/29/2017 [facility] HEMATOLOGY MPV 9.6 fL 7.4 - 10.4 03/29/2017 [facility] HEMATOLOGY Platelet 285 K/CMM 133 - 450 03/29/2017 [facility] URINE AND STOOL UA Ketones Negative mg/dL Negative mg/dL 03/29/2017 [facility] URINE AND STOOL UA Glucose Negative mg/dL Negative mg/dL 03/29/2017 [facility] URINE AND STOOL UA Protein Negative mg/dL Negative mg/dL 03/29/2017 [facility] URINE AND STOOL UA pH 6.0 5.0 - 8.0 03/29/2017 [facility] URINE AND STOOL UA Spec Grav 1.021 <=1.030 03/29/2017 [facility] URINE AND STOOL UA Blood Negative (03/29/17 1:07 AM) Negative 03/29/2017 [facility] URINE AND STOOL UA Sq Epi Few /LPF Few /LPF 03/29/2017 [facility] URINE AND STOOL UA Leuk Est Negative (03/29/17 1:07 AM) Negative 03/29/2017 [facility] URINE AND STOOL UA Nitrite Negative (03/29/17 1:07 AM) Negative 03/29/2017 [facility] URINE AND STOOL UA Bili Negative *NA* (03/29/17 1:07 AM) Negative 03/29/2017 [facility] URINE AND STOOL UA Color Yellow *NA* (03/29/17 1:07 AM) Yellow 03/29/2017 [facility] URINE AND STOOL UA Turbidity Clear (03/29/17 1:07 AM) Clear 03/29/2017 [facility] URINE AND STOOL UA RBC 3 /HPF 0 - 2 03/29/2017 [facility] URINE AND STOOL UA Urobilinogen <=1.0 mg/dL 0.1 - 1.0 03/29/2017 [facility] URINE AND STOOL UA Mucus Few /LPF None Seen /LPF 03/29/2017 [facility] URINE AND STOOL UA WBC 1 /HPF 0 - 5 03/29/2017 [facility] Chest 1view DX Chest 1view DX Study: Frontal chest x-ray History: Cough for 4 days Comments: The trachea is midline. The cardiomediastinal silhouette is normal in size. No pneumonia. No pleural effusions or pneumothorax. Impression: No acute cardiopulmonary disease. 01/27/2017 - - Read by: Cristine Hays MD Dictated Date/time: 03/04/17 01:56 Electronically Signed by: Cristine Hays MD 01/27/17 02:05 FINAL REPORT [facility] Vital Signs Vital Sign Value Date Comments Source Weight 102.273 04/02/2018 [facility] Heart Rate 95 04/02/2018 [facility] Systolic (mm Hg) 144 04/02/2018 [facility] Diastolic (mm Hg) 94 04/02/2018 [facility] Temperature Oral (F) 98.4 F 04/02/2018 [facility] Respitory Rate 18 04/02/2018 [facility] BMI Calculated 37.52 04/02/2018 [facility] Height 165.1 cm 04/02/2018 [facility] Heart Rate 84 11/09/2017 [facility] Temperature Oral (F) 97.8 F 11/09/2017 [facility] Systolic (mm Hg) 124 11/09/2017 [facility] Diastolic (mm Hg) 74 11/09/2017 [facility] Respitory Rate 14 11/09/2017 [facility] Temperature Oral (F) 97.9 F 11/09/2017 [facility] Respitory Rate 14 11/09/2017 [facility] Systolic (mm Hg) 117 11/09/2017 [facility] Diastolic (mm Hg) 68 11/09/2017 [facility] Respitory Rate 20 11/09/2017 [facility] Systolic (mm Hg) 156 11/09/2017 [facility] Diastolic (mm Hg) 95 11/09/2017 [facility] Heart Rate 92 11/09/2017 [facility] BMI Calculated 36.69 11/09/2017 [facility] Weight 100 11/09/2017 [facility] Height 165.1 cm 11/09/2017 [facility] Temperature Oral (F) 99.0 F 11/09/2017 [facility] Temperature Oral (F) 97.9 F 03/29/2017 [facility] Heart Rate 82 03/29/2017 [facility] Respitory Rate 16 03/29/2017 [facility] Systolic (mm Hg) 145 03/29/2017 [facility] Diastolic (mm Hg) 80 03/29/2017 [facility] Systolic (mm Hg) 156 03/29/2017 [facility] Diastolic (mm Hg) 96 03/29/2017 [facility] Heart Rate 86 03/29/2017 [facility] Respitory Rate 18 03/29/2017 [facility] BMI Calculated 33.35 03/29/2017 [facility] Weight 90.909 03/29/2017 [facility] Height 165.1 cm 03/29/2017 [facility] Temperature Oral (F) 98.1 F 03/29/2017 [facility] Systolic (mm Hg) 148 01/27/2017 [facility] Diastolic (mm Hg) 82 01/27/2017 [facility] Respitory Rate 18 01/27/2017 [facility] Temperature Oral (F) 98 F 01/27/2017 [facility] Heart Rate 77 01/27/2017 [facility] Respitory Rate 16 01/27/2017 [facility] Systolic (mm Hg) 144 01/27/2017 [facility] Diastolic (mm Hg) 89 01/27/2017 [facility] Heart Rate 87 01/27/2017 [facility] Respitory Rate 18 01/27/2017 [facility] Systolic (mm Hg) 139 01/27/2017 [facility] Diastolic (mm Hg) 78 01/27/2017 [facility] Temperature Oral (F) 97.8 F 01/27/2017 [facility] Heart Rate 86 01/27/2017 [facility] Height 165.1 cm 01/27/2017 [facility] BMI Calculated 35.02 01/27/2017 [facility] Weight 95.455 01/27/2017 [facility] Temperature Oral (F) 98.1 F 01/27/2017 [facility] Weight 95.455 06/21/2016 [facility] BMI Calculated 35.02 06/21/2016 [facility] Systolic (mm Hg) 148 06/21/2016 [facility] Diastolic (mm Hg) 87 06/21/2016 [facility] Temperature Oral (F) 98.3 F 06/21/2016 [facility] Respitory Rate 20 06/21/2016 [facility] Heart Rate 81 06/21/2016 [facility] Height 165.1 cm 06/21/2016 [facility] Encounters Location Location Details Encounter Type Encounter Number Reason For Visit Attending Provider ADM Date DC Date Status Source [facility] [id number] Malcolm Cotton 06/21/2016 06/21/2016 [facility] [id number] Josue Sagastume 01/27/2017 01/27/2017 [facility] [id number] Vita Simon 03/29/2017 03/29/2017 [facility] [id number] Magalis Lakhaniuyen 11/09/2017 11/09/2017 [facility] [id number] Russell Klein 04/02/2018 04/02/2018 [facility] Procedures Procedure Code Date Perfomer Comments Source Gallbladder stone removal [id number] [facility] Hysterectomy [id number] [facility]
--- OUTSIDE RECORDS SUMMARY | 2019-01-01 20:53 | XMS REPORT | Summary of Care ---
Author Author [facility] Organization [facility] Address Unknown Phone Unavailable Encounter DERRICK Guzmán(JERRY) [id number] Date(s): 04/02/18 - 04/02/18 [facility] [address] [place] [address]- Discharge Disposition: Non-Emergent Attending Physician: Russell Klein MD Vital Signs Most recent to 1 oldest [Reference Range]: Height 165.1 cm (04/02/18 4:22 PM) Temperature Oral 98.4 DegF [96.4-99.1 DegF] (04/02/18 4:22 PM) Blood Pressure 144/94 mmHg [90-140/60-90 mmHg] *HI* (04/02/18 4:22 PM) Respiratory Rate 18 BRMIN [14-20 BRMIN] (04/02/18 4:22 PM) Peripheral Pulse 95 bpm Rate [60-100 bpm] (04/02/18 4:22 PM) Weight 102.273 kg (04/02/18 4:22 PM) Body Mass Index 37.52 m2 (04/02/18 4:22 PM) Problem List Condition Effective Dates Status [...] Procedures Procedure Date Related Diagnosis Body Site Status Gallbladder stone removal Completed Hysterectomy Completed Social History Social History Type Response Alcohol Never, Previous treatment: None. Smoking Status Never smoker; Previous treatment: None; Ready to change: No; Concerns about tobacco use in household: No; Exposure to Tobacco Smoke None; Cigarette Smoking Last 365 Days No; Reg Smoking Cessation Counseling Yes entered on: 11/09/17 Assessment and Plan No data available for this section
--- OUTSIDE RECORDS SUMMARY | 2019-01-01 20:53 | XMS REPORT | Summary of Care ---
Author Author [facility] Organization [facility] Address Unknown Phone Unavailable Encounter DERRICK Guzmán(JERRY) [id number] Date(s): 01/27/17 - 01/27/17 [facility] [address] [place] [address]- Discharge Diagnosis: Acute asthma exacerbation Discharge Disposition: Home or Self Care Attending Physician: Josue Sagastume MD Vital Signs 1 2 3 Most recent to oldest [Reference Range]: 165.1 cm (01/27/17 12:17 AM) Height 98 DegF (01/27/17 3:40 AM) 97.8 DegF (01/27/17 1:15 AM) 98.1 DegF (01/27/17 12:17 AM) Temperature Oral [96.4-99.1 DegF] 148/82 mmHg *HI* (01/27/17 3:40 AM) 144/89 mmHg *HI* (01/27/17 2:40 AM) 139/78 mmHg (01/27/17 1:15 AM) Blood Pressure [90-140/60-90 mmHg] 18 BRMIN (01/27/17 3:40 AM) 16 BRMIN (01/27/17 3:31 AM) 18 BRMIN (01/27/17 2:40 AM) Respiratory Rate [14-20 BRMIN] 77 bpm (01/27/17 3:40 AM) 87 bpm (01/27/17 2:40 AM) 86 bpm (01/27/17 1:15 AM) Peripheral Pulse Rate [60-100 bpm] 95.455 kg (01/27/17 12:17 AM) Weight 35.02 m2 (01/27/17 12:17 AM) Body Mass Index Problem List Condition Effective Dates Status Health Status Informant Asthma(Confirmed) Resolved BP+ - Resolved Hypertension(Confirm ed) Hysterectomy(Confirm 03/12/14 Active ed) Allergies, Adverse Reactions, Alerts Substance Reaction Severity Status Food Strawberries Active NKDA Active Medications albuterol 0.083% inhalation solution 2.49 mg, 3 mL, Route: NEB, Drug form: SOLN, ONCE, Dosing Weight 95.455, kg, Prio rity: STAT, Start date: 01/27/17 1:34:00 RELAY OPERATOR, Stop date: 01/27/17 1:34:00 RELAY OPERATOR Notes: SEE RT DOCUMENTATION (Same as: Sandip) Start Date: 01/27/17 Stop Date: 01/27/17 Status: Completed albuterol 90 mcg/inh inhalation aerosol 2 puff, INHALATION, QID, PRN Wheezing, # 17 gm, 0 Refill(s) Start Date: 01/27/17 Status: Ordered albuterol-ipratropium 2.5-0.5 mg inhalation solution 3 mL, Route: NEB, Drug Form: SOLN, Dosing Weight 95.455, kg, ONCE, STAT, Start d ate: 01/27/17 1:34:00 RELAY OPERATOR, Stop date: 01/27/17 1:34:00 RELAY OPERATOR Notes: (Same as: Muriel) Start Date: 01/27/17 Stop Date: 01/27/17 Status: Completed Azithromycin 5 Day Dose Pack 250 mg oral tablet See Instructions, Take 2 tablets by mouth the first day then 1 tablet by mouth d ays 2-5., X 5 day, # 6 tab, 0 Refill(s) Start Date: 01/27/17 Stop Date: 02/01/17 Status: Ordered predniSONE 60 mg, Route: PO, Drug form: TAB, ONCE, Dosing Weight 95.455, kg, Priority: STAT , Start date: 01/27/17 1:34:00 RELAY OPERATOR, Stop date: 01/27/17 1:34:00 RELAY OPERATOR Start Date: 01/27/17 Stop Date: 01/27/17 Status: Completed predniSONE 50 mg oral tablet 50 mg=1 tab, PO, Daily, X 5 day, # 5 tab, 0 Refill(s) Start Date: 01/27/17 Stop Date: 02/01/17 Status: Ordered Saline Flush 0.9% 10 mL, Route: IVP, Drug Form: INJ, Dosing Weight 95.455, kg, PRN, PRN Line Flush , Start date: 01/27/17 1:34:00 RELAY OPERATOR, Duration: 30 day, Stop date: 02/26/17 2:33:0 0 CDT Notes: (Same as: BD Posiflush) Start Date: 01/27/17 Stop Date: 01/27/17 Status: Discontinued Results No data available for this section [...]
== END 2019-01-01 22:56 | disposition home or self-care (01) ==
LOC: FSED 20:50
DX: H57.12 Ocular pain, left eye (principal); H10.89 Other conjunctivitis
CPT/HCPCS: 99282